=== PATIENT | female | born 1965 | race Caucasian/White ===

== ENCOUNTER 2023-11-09 11:55 | Outpatient (CLI) | payer OTHER | END 2023-11-09 11:56 | disposition home or self-care (01) | LOC: BICMAMMO 11:55 | PROVIDERS: ATTEND Internal Medicine | DX: Z12.31 Encounter for screening mammogram for malignant neoplasm of breast (principal) | CPT/HCPCS: 77063; 77067 ==

== ENCOUNTER 2024-09-12 10:50 | Outpatient (CLI) | payer OTHER | END 2024-09-12 10:51 | disposition home or self-care (01) | LOC: MRI 10:50 | PROVIDERS: ATTEND Internal Medicine | DX: H81.399 Other peripheral vertigo, unspecified ear (principal) | CPT/HCPCS: 70553; 76376 ==